=== PATIENT | male | born 1975 | race Caucasian/White ===

== ENCOUNTER → 2023-06-14 07:08 | Outpatient (REF) | payer BC, SELFPAY ==
[2023-06-14 07:56] LABS: % Basophils 0.7 % (0-2); % Eosinophils 4.9 % (0-6); % Immature Granulocytes 0.2 % (0-0.5); % Lymphocytes 28.2 % (20.5-51.1); % Monocytes 9.1 % (1.7-9.3); % Neutrophils 56.9 % (42.2-75.2); Absolute Eosinophils 0.2 10^3/uL (0-0.7); Absolute Lymphocytes 1.2 10^3/uL (1.2-3.4); Absolute Monocytes 0.4 10^3/uL (0.1-0.6); Absolute Neutrophils 2.3 10^3/uL (1.4-6.5); Hematocrit 42.4 % (39.0-52.0); Hemoglobin 14.4 g/dL (13.0-18.0); Mean Corpuscular Hgb 30.6 pg (27.0-31.0); Mean Corpuscular Volume 90.2 fL (80.0-94.0); Mean Platelet Volume 8.3 fL (7.4-10.4); Nucleated Red Blood Cells % 0 % (-); Platelet Count 249 10^3/uL (130-400); Red Cell Dist. Width 12.3 % (11.5-14.5); White Blood Cell Count 4.1 10^3/uL (4.8-10.8)
[2023-06-14 08:40] LABS: Blood Urea Nitrogen 16 mg/dl (9-20); Calcium 9.3 mg/dl (8.4-10.2); Carbon Dioxide 32 mmol/L (22-30); Chloride 102 mmol/L (98-107); Glucose 99 mg/dl (70-99); Potassium 4.5 mmol/L (3.5-5.1); Sodium 137 mmol/L (135-145); eGFR > 60.00
== END ==
LOC: REG 07:08
PROVIDERS: ATTENDING PHYSICIAN Otolaryngology
DX: J34.2 Deviated nasal septum (principal); Z01.810 Encounter for preprocedural cardiovascular examination
CPT/HCPCS: 36415; 80048; 85025; 93005

== ENCOUNTER → 2024-06-18 12:02 | Outpatient (REF) | payer OTHER, SELFPAY | LOC: RAD 12:02 | PROVIDERS: ATTENDING PHYSICIAN Internal Medicine Gastroenterology; FAMILY PHYSICIAN Family Medicine | DX: R10.30 Lower abdominal pain, unspecified (principal) | CPT/HCPCS: 74177; Q9967 ==

== ENCOUNTER 2024-06-18 21:22 | Inpatient (IN) | payer OTHER, SELFPAY ==
[2024-06-18 18:07] VITALS: BMI 21.0
[2024-06-18 18:10] VITALS: BP 134/87
[2024-06-18 19:01] VITALS: BP 125/78
[2024-06-18] MEDS: NSS 1000 IV (19:18)
[2024-06-18 19:33] LABS: % Basophils 0.5 % (0-2); % Eosinophils 3.3 % (0-6); % Immature Granulocytes 0.2 % (0-0.5); % Lymphocytes 32.4 % (20.5-51.1); % Monocytes 9.7 % (1.7-9.3); % Neutrophils 53.9 % (42.2-75.2); Absolute Eosinophils 0.2 10^3/uL (0-0.7); Absolute Lymphocytes 2.1 10^3/uL (1.2-3.4); Absolute Monocytes 0.6 10^3/uL (0.1-0.6); Absolute Neutrophils 3.4 10^3/uL (1.4-6.5); Hemoglobin 14.6 g/dL (13.0-18.0); Mean Corp Hgb Conc. 34.8 g/dL (33.0-37.0); Mean Corpuscular Hgb 30.5 pg (27.0-31.0); Mean Corpuscular Volume 87.9 fL (80.0-94.0); Nucleated Red Blood Cells % 0 % (-); Platelet Count 315 10^3/uL (130-400); Red Blood Cell Count 4.78 10^6/uL (4.70-6.10); Red Cell Dist. Width 12.1 % (11.5-14.5); White Blood Cell Count 6.4 10^3/uL (4.8-10.8)
[2024-06-18 19:48] LABS: ALT (SGPT) 25 U/L (0-50); AST (SGOT) 26 U/L (17-59); Albumin 4.5 g/dl (3.5-5.0); Alkaline Phosphatase 108 U/L (38-126); Blood Urea Nitrogen 15 mg/dl (9-20); Calcium 9.3 mg/dl (8.4-10.2); Carbon Dioxide 31 mmol/L (22-30); Chloride 100 mmol/L (98-107); Estimated Creatinine Clearance 124 ml/min; Glucose 89 mg/dl (70-99); Potassium 4.2 mmol/L (3.5-5.1); Sodium 139 mmol/L (135-145); Total Bilirubin 0.4 mg/dl (0.2-1.3); Total Protein 7.3 g/dl (6.3-8.2); eGFR > 60.00
[2024-06-18 20:00] VITALS: BP 129/83
--- NOTE | 2024-06-18 20:13 | ED.GENMED ---
History of Present Illness
<Kathy Jesus NP - Last Filed: 06/18/24 22:06>
General
Chief Complaint: Abdominal Pain
Source: patient
Exam Limitations: none
Time Seen by Provider: 06/18/24 18:53
Nursing documentation reviewed up to this point in time: agreed with
History of Present Illness
History of Present Illness:
Patient to ED from outpatient CT for diverticulitits with suspected abscess. He states he has had intermittent lower abd. pain for the past 1-2 months. He was seen by his PCP and sent for outpatient CT today. He denies fever/chills, n/v/d. No
prior history of same. Brought to ED by spouse for eval.
Past History
<Kathy Jesus NP - Last Filed: 06/18/24 22:06>
Past History
ED Past Medical History: Psychiatric (anxiety)
ED Past Surgical History: Urological
Social History
Tobacco: Non-smoker
Alcohol: Occasional
Review of Systems
<Kathy Jesus NP - Last Filed: 06/18/24 22:06>
Review of Systems
Allergies reviewed?: Yes
All Other Systems: ROS reviewed and negative except as documented in HPI and ROS
Constitutional: Reports no symptoms
EENT: Reports no symptoms
Respiratory: Reports no symptoms
Cardiac: Reports no symptoms
ABD/GI: Reports abdominal pain (mild lower abd. pain)
: Reports no symptoms
Musculoskeletal: Reports no symptoms
Skin: Reports no symptoms
Neurological: Reports no symptoms
Psychiatric: Reports no symptoms
Phy Exam
<Kathy Jesus NP - Last Filed: 06/18/24 22:06>
General Physical Exam
General Presentation: well appearing and no apparent distress
General age: appears stated age
General Skin: warm and dry
General Habitus: normal
General Mental: alert
Cardiovascular Exam
Cardiovascular Exam: regular rate/rhythm and no edema
Gastrointestinal Exam
Gastrointestinal Exam: normal bowel sounds, soft, no organomegaly, non distended and no cva tenderness
Palpation: left upper quadrant: No tenderness, left lower quadrant: Mild tenderness, right upper quadrant: No tenderness and right lower quadrant: Mild tenderness
Musculoskeletal Exam
Musculoskeletal Exam: full ROM and neuro vasc intact
Skin Exam
Skin Exam: normal color, warm/dry and no rash
Psychiatric Exam
Psychiatric Exam: normal mood/affect
Course
<Kathy Jesus NP - Last Filed: 06/18/24 22:06>
Orders/Labs/Results
Orders:
Orders
06/18/24 Dinner
NPO
Allow oral meds: Yes
Allow clear liquids: Sips of Clears
06/18/24 18:55
0.9% Sodium Chloride 1000 ml [Nss] 1,000 ml IV BOLUS
06/18/24 19:19
Complete Blood Count/With Diff Urgent
Comprehensive Metabolic Panel Urgent
06/18/24 20:19
ColoRectal Surgery Consult Urgent
Consulting Provider: Christos Jordan
Was physician already notified: Yes
LevoFLOXacin 500 MG/100 ML [Levaquin] 500 mg in 100 ml IV NOW
MetroNIDAZOLE 500 MG/100 ML [Flagyl 500 mg] 100 ml IV NOW
06/18/24 20:47
Admit/Transfer Patient As Directed
Co-Sign Provider:
Level of Care: Inpatient admission
Assign to:: Medical/Surgical
Physician / Group: hospitalist
Diagnosis: acute sigmoid diverticulitis
Reason for Hospitalization: sigmoid diverticulitis
Expected length of stay greater than two midnights?: Yes
ELOS- Estimated Length of Stay in days: 2
I certify the patient meets the requirements for IP care: Yes
Code Status As Directed
Resuscitation Status: Full Code
PRN Pain Medication Management As Directed
May give lesser potent ordered pain med per pt: Yes
preference::
Protocol:: Medication orders for pain may be administered in a
manner that supports deferring to patient preference
when the pt is:
- Requesting an ordered lesser potent pain medication.
Least to most potent pain medications are defined
as: acetaminophen < NSAID < tramadol < opioids
(morphine, oxycodone, hydromorphone).
- Requesting a lesser dose of the same medication IF
ORDERED.
- Requesting a less intrusive route of administration
if both routes are prescribed by the provider (PO <
IV).
06/18/24 21:47
Acetaminophen [Tylenol] 650 mg PO Q4HPRN PRN
Dextrose 5%/Lactringers 1000ML [D5lr] 1,000 ml IV 100 mls/hr
HYDROmorphone [Dilaudid] 0.5 mg IV Q4HPRN PRN
Ketorolac [Toradol] 10 mg IV Q6HPRN PRN
Ondansetron Injectable [Zofran] 4 mg IV Q6HPRN PRN
Oxycodone [Roxicodone] 5 mg PO Q4HPRN PRN
06/18/24 21:47
Activity As Directed
Activity Level: With Assistance
Vital Signs As Directed
Frequency: Per unit guidelines
DX Deep Vein Thrombosis Video Routine
06/19/24 00:00
Heparin 5,000 units SC Q8
06/19/24 04:00
MetroNIDAZOLE 500 MG/100 ML [Flagyl 500 mg] 100 ml IV Q8H
06/19/24 06:00
Basic Metabolic Panel IN AM
Complete Blood Count/No Diff IN AM
06/19/24 08:00
Venlafaxine Extended Release [Effexor Xr] 37.5 mg PO DAILY
06/19/24 20:00
LevoFLOXacin 750 MG/150 ML [Levaquin] 750 mg in 150 ml IV Q24H
Abnormal Lab Results
06/18/24
19:19
Monocytes % 9.7 H %
(1.7-9.3)
Carbon Dioxide 31 H mmol/L
(22-30)
06/18/24 19:19
06/18/24 19:19
Vital Signs
Initial and Last Documented VS:
Initial Vital Signs
Temp Pulse Resp BP Pulse Ox
97.7 F 74 16 134/87 100
06/18/24 18:10 06/18/24 18:10 06/18/24 18:10 06/18/24 18:10 06/18/24 18:10
Last Documented Vital Signs
Temp Pulse Resp BP Pulse Ox
97.7 F 71 20 129/79 98
06/18/24 21:51 06/18/24 21:51 06/18/24 21:51 06/18/24 21:51 06/18/24 21:51
<Chelsi Koehler MD - Last Filed: 06/18/24 20:51>
Orders/Labs/Results
Orders:
Orders
06/18/24 Dinner
NPO
Allow oral meds: Yes
Allow clear liquids: Sips of Clears
06/18/24 18:55
0.9% Sodium Chloride 1000 ml [Nss] 1,000 ml IV BOLUS
06/18/24 19:19
Complete Blood Count/With Diff Urgent
Comprehensive Metabolic Panel Urgent
06/18/24 20:19
ColoRectal Surgery Consult Urgent
Consulting Provider: Christos Jordan
Was physician already notified: Yes
LevoFLOXacin 500 MG/100 ML [Levaquin] 500 mg in 100 ml IV NOW
MetroNIDAZOLE 500 MG/100 ML [Flagyl 500 mg] 100 ml IV NOW
06/18/24 20:47
Admit/Transfer Patient As Directed
Co-Sign Provider:
Level of Care: Inpatient admission
Assign to:: Medical/Surgical
Physician / Group: hospitalist
Diagnosis: acute sigmoid diverticulitis
Reason for Hospitalization: sigmoid diverticulitis
Expected length of stay greater than two midnights?: Yes
ELOS- Estimated Length of Stay in days: 2
I certify the patient meets the requirements for IP care: Yes
Code Status As Directed
Resuscitation Status: Full Code
PRN Pain Medication Management As Directed
May give lesser potent ordered pain med per pt: Yes
preference::
Protocol:: Medication orders for pain may be administered in a
manner that supports deferring to patient preference
when the pt is:
- Requesting an ordered lesser potent pain medication.
Least to most potent pain medications are defined
as: acetaminophen < NSAID < tramadol < opioids
(morphine, oxycodone, hydromorphone).
- Requesting a lesser dose of the same medication IF
ORDERED.
- Requesting a less intrusive route of administration
if both routes are prescribed by the provider (PO <
IV).
06/18/24 21:47
Acetaminophen [Tylenol] 650 mg PO Q4HPRN PRN
Dextrose 5%/Lactringers 1000ML [D5lr] 1,000 ml IV 100 mls/hr
HYDROmorphone [Dilaudid] 0.5 mg IV Q4HPRN PRN
Ketorolac [Toradol] 10 mg IV Q6HPRN PRN
Ondansetron Injectable [Zofran] 4 mg IV Q6HPRN PRN
Oxycodone [Roxicodone] 5 mg PO Q4HPRN PRN
06/18/24 21:47
Activity As Directed
Activity Level: With Assistance
Vital Signs As Directed
Frequency: Per unit guidelines
DX Deep Vein Thrombosis Video Routine
06/19/24 00:00
Heparin 5,000 units SC Q8
06/19/24 04:00
MetroNIDAZOLE 500 MG/100 ML [Flagyl 500 mg] 100 ml IV Q8H
06/19/24 06:00
Basic Metabolic Panel IN AM
Complete Blood Count/No Diff IN AM
06/19/24 08:00
Venlafaxine Extended Release [Effexor Xr] 37.5 mg PO DAILY
06/19/24 20:00
LevoFLOXacin 750 MG/150 ML [Levaquin] 750 mg in 150 ml IV Q24H
Abnormal Lab Results
06/18/24
19:19
Monocytes % 9.7 H %
(1.7-9.3)
Carbon Dioxide 31 H mmol/L
(22-30)
06/18/24 19:19
06/18/24 19:19
Vital Signs
Initial and Last Documented VS:
Initial Vital Signs
Temp Pulse Resp BP Pulse Ox
97.7 F 74 16 134/87 100
06/18/24 18:10 06/18/24 18:10 06/18/24 18:10 06/18/24 18:10 06/18/24 18:10
Last Documented Vital Signs
Temp Pulse Resp BP Pulse Ox
97.7 F 71 20 129/79 98
06/18/24 21:51 06/18/24 21:51 06/18/24 21:51 06/18/24 21:51 06/18/24 21:51
<Kathy Jesus NP - Last Filed: 06/18/24 22:06>
*Radiology
Radiology exam reviewed: radiology read reviewed (outpatient CT sigmoid diverticulitis, developing pericolonic abscess, no perforation.)
*Pulse Oximetry
Patient hypoxic: no
*Critical Care Note
Total Time (30-74mins, 75-104mins- exclusive of procedures): Not Applicable
<Kathy Jesus NP - Last Filed: 06/18/24 22:06>
Update Note
Update Note:
Patient to ED from outpatient CT for finding of sigmoid diverticulitis with developing pericolonic abscess. He is afebrile. Wbc normal. IV antibiotics started in dept. Will admit to hospitalists service. Dr. Jordan notified of findings and will
consult.
ED Attending Note
<Kathy Jesus NP - Last Filed: 06/18/24 22:06>
-
Portions of this chart may have been created with voice recognition software.� Occasional wrong word or��sound alike� substitutions may have occurred due to the inherent limitations of voice recognition software.
<Chelsi Koehler MD - Last Filed: 06/18/24 20:51>
ED Attending Note
Patient seen and examined by attending physician: Yes
I performed the substantive portion of visit, reviewed & personally made and approve the management plan that is documented in note by myself or DAYSI.: Yes
ED Attending Note:
49 yr old male with reported diverticulitis with possible abscess. pain / now, does not want pain meds, no n/v. D/w them plan. Pt awake alert in nad.
Discharge Plan
Departure
Patient Disposition: Admit
Date of Disposition: 06/18/24
Time of Disposition: 20:18
Presentation/result/management discussed w/ accepting MD/DO: Hospitalist
Patient with high blood pressure during this ER visit?: No
Condition: Fair
Covid-19: Not Applicable
Discharge Problem:
Diverticulitis of sigmoid colon, Pericolonic abscess due to diverticulitis
Interventions
Interventions:
*Risk Screen - Suicide Last Done: 06/18/24 18:10
*General Assessment Last Done: 06/18/24 18:10
*Neglect/Abuse Screening Last Done: 06/18/24 18:56
*ED- Fall Risk Assessment Last Done: 06/18/24 18:56
*ED COVID-19 Vaccine History Last Done: 06/18/24 21:37
*Nursing Disposition Last Done: 06/18/24 21:37
NK-Naiczy-Distlfkjso Assessment Last Done: 06/18/24 18:56
Discharge Date and Time
Discharge Date/Time: 06/18/24 21:37
[2024-06-18] MEDS: FLAGYL 500 MG 100 IV (20:20)
[2024-06-18] MEDS: LEVAQUIN 100 IV (20:20)
--- NOTE | 2024-06-18 20:37 | HPS.HSE ---
Family Physician
-
Family Physician:
Chief Complaint
-
Abdominal pain
History of Present Illness
That he is a 49-year-old who denies any significant past medical history presented to the emergency department following an outpatient CT scan for abdominal pain.
Patient reports of several weeks of intermittent lower quadrant abdominal pain. He points to the suprapubic region just below the umbilicus in the midline. He says the occasionally sharp stabbing pain. 5 days ago he had more of a crampy abdominal
discomfort. This was also intermittent. He followed up with PMD who recommended routine screening colonoscopy. When he made an appointment with GI he was sent for a CT scan which showed acute diverticulitis with pericolonic abscess and he was
sent to the emergency department.
Patient reports family history of diverticulitis in father. He has no prior history of diverticulitis or diverticulosis. No prior intra-abdominal surgery.
In the emergency department he was afebrile, blood pressure was 129/80 with a pulse of 66 and was satting 99% on room air. CBC was completely normal. Electrolytes BUN/creatinine were all in normal range. Lactic acid was negative.
CT abdomen pelvis showing findings of acute sigmoid diverticulitis. There is a 1.1 x 1.1 cm slightly ill-defined hypodensity along the posterior aspect of the distal sigmoid colon favored to represent a developing pericolonic abscess. There is no
evidence of perforation.
Medical History
Past Medical History
Past Medical History: Reports None
Past Surgical History: Reports Other (nasal septum surgery)
Social History
Tobacco: Non-smoker
Alcohol: Occasional
Drug: None
Personal:
Living: With Family
Employment: Employed
Family History
Family History: Not pertinent
Allergies / Home Medications
Allergies reflects when Allergies were last updated in [employer].
Home Medications with original date entered in [employer]
Allergy/Medication List:
Allergies
Allergy/AdvReac Type Severity Reaction Status Date / Time
Cephalosporins Allergy Rash Verified 06/18/24 18:10
penicillin V Allergy Rash Verified 06/18/24 18:10
Penicillins Allergy Rash Verified 06/18/24 18:10
Home Medications
venlafaxine 37.5 mg capsule,extended release 24 hr 37.5 mg PO DAILY 06/18/24
Review of Systems
-
Constitutional: Reports No Symptoms
EENT: Reports No Symptoms
Respiratory: Reports No Symptoms
Cardiac: Reports No Symptoms
Abdomen/GI: Reports Abdominal Pain
: Reports No Symptoms
Musculoskeletal: Reports No Symptoms
Skin: Reports No Symptoms
Neurological: Reports No Symptoms
Endocrine: Reports No Symptoms
Hematologic/Lymphatic: Reports No Symptoms
Psych: Reports No Symptoms
Physical Exam
Vital Signs
Vital Signs
Temp Pulse Resp BP Pulse Ox
97.7 F 66 16 129/83 99
06/18/24 18:10 06/18/24 20:00 06/18/24 20:00 06/18/24 20:00 06/18/24 20:00
Physical Exam
General: Well Developed, Well Nourished, No Apparent Distress and Comfortable
HEENT: NormoCephalic, Anicteric, Moist mucous membranes and Atraumatic
Respiratory: Clear
Cardiac: S1/S2 and Regular Rhythm
GI: Soft, Non Distended, Normal Bowel Sounds and Tender
Genito-urinary: Deferred by me
Musculoskeletal: No Clubbing, No Cyanosis and No Edema
Skin: Warm
Neuro: AO x 3 and Nonfocal/grossly intact
Hematologic/Lymphatic: No Lymphadenopathy
Psych: Calm
Laboratory Results
-
06/18/24 19:19
06/18/24 19:19
Laboratory Results
Total Bilirubin 0.4 mg/dl (0.2-1.3) 06/18/24 19:19
AST 26 U/L (17-59) 06/18/24 19:19
ALT 25 U/L (0-50) 06/18/24 19:19
Alkaline Phosphatase 108 U/L (38-126) 06/18/24 19:19
Data Reviewed
-
CT Scan: Report Reviewed by me
Lab Data: Labs Reviewed by me
Old Records: Reviewed
Impression/Plan
-
IMPRESSION:
49-year-old with history of abdominal pain for the last 6 weeks that was intermittent, occasionally sharp stabbing and occasionally crampy who had an outpatient CT scan showing acute sigmoid diverticulitis with small slightly ill-defined hypodensity
along the posterior aspect of the distal sigmoid colon favored to represent a developing pericolonic abscess. He is overall actually well-appearing. There is no rebound or guarding. Electrolytes are normal, no leukocytosis and is afebrile.
PLAN:
1. Acute sigmoid diverticulitis, possible small pericolonic fluid collection/abscess
-Admit to [facility]
-N.p.o. for now
-Surgery consulted
-IV levofloxacin/flagyl
-Pain control antiemetics, IV fluids for now
-Blood cultures if spike fever
DVT prophylaxis with heparin subcu
CODE STATUS�full code
[2024-06-18 20:53] VITALS: BP 119/88
[2024-06-18 21:00] VITALS: BP 125/81
[2024-06-18 21:51] VITALS: BP 129/79
[2024-06-18 21:52] VITALS: BMI 21.1
[2024-06-18] MEDS: D5LR 1000 IV (22:35)
[2024-06-18] MEDS: HEPARIN 5000 UNITS SC (23:00)
[2024-06-19] MEDS: FLAGYL 500 MG 100 IV (04:06)
[2024-06-19 07:00] VITALS: BP 114/77
[2024-06-19 08:02] LABS: Hematocrit 40.1 % (39.0-52.0); Hemoglobin 13.8 g/dL (13.0-18.0); Mean Corp Hgb Conc. 34.4 g/dL (33.0-37.0); Mean Corpuscular Hgb 30.7 pg (27.0-31.0); Mean Corpuscular Volume 89.3 fL (80.0-94.0); Mean Platelet Volume 8.3 fL (7.4-10.4); Platelet Count 286 10^3/uL (130-400); Red Blood Cell Count 4.49 10^6/uL (4.70-6.10); White Blood Cell Count 3.8 10^3/uL (4.8-10.8)
--- NOTE | 2024-06-19 08:55 | W.PN.HOSP.TC ---
Addendum entered and electronically signed by Marino Reynolds DO 06/19/24 09:13:
I spoke with colorectal surgery, Dr. Glover.
Okay to start regular diet and discharge today if tolerating. Continue antibiotics.
Follow-up in the office in 2 to 4 weeks.
Patient and want to schedule colonoscopy through Dr. Glover's office.
Original Note:
Today's Communication/Plan
-
Continue antibiotics
start clears if okay with surgical service
Assessment / Plan
Assessment / Plan
Gen-AAOx3, NAD
HEENT-NC, AT, anicteric, clear oral mm
Neck-supple
CV-reg, no M, +S1/S2
Lungs-clear B/L
Abd-soft, NT, ND
Ext-no edema
Musculoskeletal-no cyanosis, clubbing
Skin-warm and dry
Neuro-grossly non-focal
Psych-calm, cooperative
Acute sigmoid diverticulitis - with small abscess measuring 1.1 x 1.1 cm along the posterior aspect of the distal sigmoid colon. No signs or symptoms of sepsis. Colorectal surgery consulted. Continue IV antibiotics.
First episode of diverticulitis. Has never had a colonoscopy. Scheduled for colonoscopy in early July, recommend waiting a little bit longer after diverticulitis to do.
Currently n.p.o., start clears if okay with surgical service.
Remote history of penicillin allergy -states he had a rash at the age of 16. Has not taken since. Suspect he likely has outgrown it at this point in time and could consider skin testing or desensitization or challenge with low-dose of penicillin
derivative.
Anxiety disorder -on venlafaxine.
Full code
Anticipated Discharge: Within 24 hours
Subjective/Interval History
-
Date of Service: June 19, 2024
Patient seen and examined. No complaints. Feels hungry.
Objective Data
-
Labs:
Laboratory Results
06/19/24
07:29
WBC 3.8 L
Hgb 13.8
Hct 40.1
Plt Count 286
Sodium Pending
Potassium Pending
Chloride Pending
Carbon Dioxide Pending
BUN Pending
Creatinine Pending
Glucose Pending
Calcium Pending
Vital Signs:
Vital Signs
Temp Pulse Resp BP Pulse Ox
98.0 F 82 18 114/77 99
06/19/24 07:00 06/19/24 07:00 06/19/24 07:00 06/19/24 07:00 06/19/24 07:00
Review of Systems
-
History Source: Patient
All other systems: Reviewed and negative
--- NOTE | 2024-06-19 09:12 | CON.CRS ---
Medical History
-
History of Present Illness:
49-year-old male with PMH of anxiety who presents after 6 weeks of intermittent lower abdominal pain that he describes as mild and crampy. This went on for several weeks but was more of a nuisance. It got worse 5 days ago with severe cramping. He
denies any urinary symptoms, change in bowel habits, hematochezia, N/V, chest pain or shortness of breath. Since Sunday, the pain has been gradually improving. He spoke to his PCP, who referred him to GI. He saw GI yesterday who ordered a stat
CT. This was done last night and showed diverticulitis with abscess. Therefore, he was recommended to go to the ED. However, he was tolerating a regular diet yesterday and states that his pain was down to a 1 out of 10. He has never had a
colonoscopy. Denies a family history of CRC.
Past Medical History
Past Medical History: Other (Anxiety)
Past Surgical History: Other (Deviated septum, varicocele)
Social History
Tobacco: Non-Smoker
Alcohol: Occasional
Drug: None
Employment: Employed
Family History
Family History: Reviewed & Not Pertinent
Allergies / Home Medications
Allergy/AdvReac Type Severity Reaction Status Date / Time
Cephalosporins Allergy Rash Verified 06/18/24 18:10
penicillin V Allergy Rash Verified 06/18/24 18:10
Penicillins Allergy Rash Verified 06/18/24 18:10
�Medication �Instructions �Recorded �Confirmed �Type
venlafaxine 37.5 mg 37.5 mg PO DAILY 06/18/24 06/18/24 History
capsule,extended release 24 hr
Review of Systems
-
A 10 point review of systems was completed, and was negative except as per HPI.
Physical Exam
Vital Signs
Temp 98.0 F 06/19/24 07:00
Pulse 82 06/19/24 07:00
Resp Rate 18 06/19/24 07:00
Blood pressure 114/77 06/19/24 07:00
SaO2 99 06/19/24 07:00
06/18/24 06/19/24 06/20/24
06:59 06:59 06:59
Actual Weight 70.42 kg
Body Mass Index (BMI) 21.1
Lab Results / Allergies
06/19/24 07:29
WBC 3.8 10^3/uL (4.8-10.8) L 06/19/24 07:29
Hgb 13.8 g/dL (13.0-18.0) 06/19/24 07:29
Hct 40.1 % (39.0-52.0) 06/19/24 07:29
Plt Count 286 10^3/uL (130-400) 06/19/24 07:29
Abs Immat Gran (auto) 0.0 10^3/uL (0-0.05) 06/18/24 19:19
Neutrophils % 53.9 % (42.2-75.2) 06/18/24 19:19
Allergy/AdvReac Type Severity Reaction Status Date / Time
Cephalosporins Allergy Rash Verified 06/18/24 18:10
penicillin V Allergy Rash Verified 06/18/24 18:10
Penicillins Allergy Rash Verified 06/18/24 18:10
Physical Exam
General: Well Developed, Well Nourished and No Apparent Distress
HEENT: Normocephalic and Atraumatic
GI: Soft, Non Tender and Non Distended
Skin: Warm and Dry
Neuro: AO x 3
Data Reviewed
-
CT Scan: Image Personally Visualized and interpreted and Discussed with Patient
Labs: Labs Reviewed by me and Discussed with Patient
Assessment / Plan
-
49-year-old male with PMH of anxiety who presents after 6 weeks of intermittent lower abdominal pain that he describes as mild and crampy. This went on for several weeks but was more of a nuisance. It got worse 5 days ago with severe cramping. He
denies any urinary symptoms, change in bowel habits, hematochezia, N/V, chest pain or shortness of breath. Since Sunday, the pain has been gradually improving. He spoke to his PCP, who referred him to GI. He saw GI yesterday who ordered a stat
CT. This was done last night and showed diverticulitis with abscess. Therefore, he was recommended to go to the ED. However, he was tolerating a regular diet yesterday and states that his pain was down to a 1 out of 10. He has never had a
colonoscopy. Denies a family history of CRC.
AFVSS
WBC 3.8 from 6.4, CR 0.7
-Diverticulitis with 1 cm abscess; personally reviewed and interpreted and this abscess may also reflect a inflamed diverticulum
� He is nontender and was tolerating a diet yesterday; therefore, would restart regular diet
� Pain control with Tylenol as needed
� Okay for DVT PPx
� OOB/IS
� Continue antibiotics for 7 to 10-day course
� Appreciate hospitalist
Dispo�if tolerating regular diet, okay for discharge today; follow-up with me in 2 to 4 weeks; will need colonoscopy as outpatient
--- NOTE | 2024-06-19 09:16 | W.DS.TRANS ---
DC Summary - [employer]
-
Discharge Instructions:
Discharge Diagnosis/Procedures Acute sigmoid diverticulitis, abscess
Diet Regular
Activity As tolerated
Driving Restrictions As prior to admission
Bathing Restrictions None
Instructions:
Stand-Alone Forms:
Changes to Home Medications: No
Discharge Medications:
DC Medications w/original date entered in [employer]
venlafaxine 37.5 mg capsule,extended release 24 hr 37.5 mg PO DAILY 06/18/24
levofloxacin 750 mg tablet 750 mg PO DAILY #6 tabs 06/19/24
metronidazole 500 mg tablet 500 mg PO Q8H #18 tabs 06/19/24
Home Medication Changes
Pending Results: No
[2024-06-19 10:12] LABS: Blood Urea Nitrogen 11 mg/dl (9-20); Calcium 9.1 mg/dl (8.4-10.2); Carbon Dioxide 31 mmol/L (22-30); Chloride 104 mmol/L (98-107); Estimated Creatinine Clearance 109 ml/min; Glucose 91 mg/dl (70-99); Potassium 4.6 mmol/L (3.5-5.1); Sodium 140 mmol/L (135-145); eGFR > 60.00
[2024-06-19] MEDS: HEPARIN SC (10:27)
[2024-06-19] MEDS: D5LR IV (10:27)
[2024-06-19] MEDS: EFFEXOR XR 37.5 MG PO (10:28)
--- NOTE | 2024-06-19 11:59 | CM ---
Chart reviewed patient is for discharge to home today, patient is independent with adl's and ambulation, no dme, patient drives.
PCP: Dr Tomas
Pharmacy [facility] in [place]
--- NOTE | 2024-06-19 12:32 | PTCARENOTE ---
12:30 Pt tolerated Regular diet, no c/o nausea or discomfort. Pt able to be discharge to home today.
== END 2024-06-19 14:07 | disposition home or self-care (01) | DRG 392 ==
LOC: 4 WEST ACU 21:22
PROVIDERS: Nurse Practitioner; ADMITTING PHYSICIAN Internal Medicine; ATTENDING PHYSICIAN Hospitalist; EMERGENCY PHYSICIAN Emergency Medicine; FAMILY PHYSICIAN Family Medicine; OTHER PHYSICIAN Surgery
DX: K57.20 Diverticulitis of large intestine with perforation and abscess without bleeding (principal); Z88.0 Allergy status to penicillin; F41.9 Anxiety disorder, unspecified; Z88.1 Allergy status to other antibiotic agents
CPT/HCPCS: 80048; 80053; 85025; 85027; 96361; 96365; 96367; 99284

== ENCOUNTER 2024-08-26 06:21 | Day surgery (SDC) | payer OTHER, SELFPAY | END 2024-08-26 09:31 | disposition home or self-care (01) | LOC: GI 06:21 | PROVIDERS: ATTENDING PHYSICIAN Surgery | DX: Z12.11 Encounter for screening for malignant neoplasm of colon (principal); K57.30 Diverticulosis of large intestine without perforation or abscess without bleeding; K56.699 Other intestinal obstruction unspecified as to partial versus complete obstruction; K62.89 Other specified diseases of anus and rectum; D12.8 Benign neoplasm of rectum | CPT/HCPCS: 45385; 88305 ==